=== PATIENT | female | born 1965 | race Caucasian/White ===

== ENCOUNTER 2017-02-11 19:47 | Emergency (ER) | payer SELFPAY ==
--- NOTE | ~2017-02-11 | ER ---
PATIENT'S NAME: JACINTO DELGADO [facility] AGE: 51 Y [address] ROOM: [place] [address] LOCATION: ED ADMIT DATE: 02/11/2017 ER/Outpatient Report DISCHARGE DATE: 02/11/2017 FAMILY PHYSICIAN: Miguel Johnson MD ATTENDING PHYSICIAN: Rashawn Quinonez Time of Arrival: 3 hours. Time of Evaluation: 1953 hours. CHIEF COMPLAINT: Possible dehydration, headache. HISTORY OF PRESENT ILLNESS: The patient states she has not felt well for the last 4 days and has had a headache for the last 24 hours. She said starting Saturday she has been nauseated, has vomited several times, has been lightheaded. She had a history of gastroparesis. She feels as though it is related to that thus causing her problems. She states just prior to arrival she did drink some Gatorade and was able to keep that down with no problems. She reports the headache is her typical headache that she has had in the past. She has also had some left lateral mid-abdominal pain. Denies any change in bowel or bladder pattern. ALLERGIES AND CURRENT MEDICATIONS: On her chart and reviewed by me. PAST MEDICAL HISTORY: Includes gastroparesis and reflux. She has had [place] in the past. She has had several strokes in 2013. Insulin-dependent diabetes. PAST SURGICAL HISTORY: Carpal tunnel surgery, elbow surgery, shoulder surgery, and hysterectomy. SOCIAL HISTORY: She does smoke about a fifth of a pack and has for the past 34 years. Rarely drinks alcohol. Denies use of drugs. REVIEW OF SYSTEMS: All negative other than those mentioned in the HPI. PHYSICAL EXAMINATION: VITAL SIGNS: She weighed 102.2 kg. Blood pressure was 91/55; pulse of 85; respirations 18; temperature of 98, tympanic; and O2 saturation of 97% on room air. [place] Coma Scale was 15. GENERAL: She is awake, alert, and oriented x4. SKIN: [place], warm, and dry. PATIENT'S NAME: JACINTO DELGADO [facility] AGE: 51 Y [address] ROOM: [place] [address] LOCATION: ED ADMIT DATE: 02/11/2017 ER/Outpatient Report DISCHARGE DATE: 02/11/2017 FAMILY PHYSICIAN: Miguel Johnson MD ATTENDING PHYSICIAN: Rashawn Quinonez RESPIRATIONS: Even and nonlabored. Lung sounds are clear throughout. HEART: Regular rate and rhythm. ABDOMEN: Soft, nondistended. Bowel sounds are present. NEUROLOGIC: She walks in with a steady even gait, moves all extremities strongly and equally. EMERGENCY DEPARTMENT COURSE: Saline lock was initiated. Lab work was drawn. CBC is within normal limits. Chem panel is within normal limits. Cardiac enzymes are negative. Free T4 is 1.2 with a TSH of 1.530. Lactate was 1. Procalcitonin was normal. EKG shows a sinus rhythm. Reviewed with Dr. Quinonez. Clean-catch UA was obtained; does show leukocytes, but few bacteria and has many epithelial cells. Fluids were initiated of D5 normal saline at a wide-open rate. She was given Benadryl 50 mg IV and then Compazine 10 mg IV for the headache. She was allowed to rest. She had no emesis while here in the ER. Vital signs remained stable. O2 saturations were above 95% on room air. Blood pressure did improve to 102/59, sinus rhythm the entire time. She states she is feeling better and would like to go home. IMPRESSION: Dehydration, headache. PLAN: Home, rest, fluids. Continue her current medications. Follow up with her primary provider, Dr. Miguel Johnson within the next 24 hours. She verbalized understanding. JEANNE MORENO APRN FOR DO EDIE DUARTE/claudia /[id number] d: 02/12/175 t: 02/12/17 1823, OUTPATIENT REPORT
[~2017-02-11 19:47] MED LIST: **HUMALOG*100 UNIT/M SUB-Q; ACETAMINOPHEN650 M2 PO; ALBUTEROL2.5 MG/31 NEB; ATARAX25 MG PO; BUSPAR10 MG PO; CARAFATE1 GM PO; CARVEDILOL25 MG PO; CATAPRES0.1 MG PO; CATAPRES0.2 M1 PO; CENTRUM COMPLE1 EACH PO; CLINDAMYCIN 1%60 ML TOP; CLOPIDOGREL75 MG PO; COLACE100 MG PO; COMPAZINE10 MG PO; COREG12.5 MG PO; DEPAKOTE ER250 MG PO; DEPAKOTE EXTEN250 MG PO; DIAMOX SEQUE500 MG PO; DIAMOX250 MG PO; DUONEB INH; ELAVIL25 MG PO; ELIMITE TOP; ERYTHROMYCIN250 M1 PO; GLUCOPHAGE500 MG; GOLYTELY PO; IMITREX50 MG PO; INSULIN PUMP1 EACH; JANUVIA50 MG PO; LANTUS100 UNIT/1 SUB-Q; LEVOTHROID (SY50 MCG PO; LISINOPRIL5 MG PO; LOVENOX120 MG/0.8 SUB-Q; MIRTAZAPINE15 M1 PO; MIRTAZAPINE15 MG PO; NEURONTIN300 MG PO; NITROSTAT0.4 MG SL; NORCO 5-325 MG1 TAB PO; NOVOLOG100 UNIT/1 SUB-Q; NOVOLOG100 UNIT/M; NOVOLOG100 UNIT/M SUB-Q; PLAVIX75 MG PO; POTASSIUM CHLO20 ME1 PO; PREFERA OB TAB1 EACH PO; PRENATABS FA T1 EACH PO; PROTONIX40 MG PO; PROVENTIL HFA6.7 GM INH; PROVENTIL OR V6.7 GM INH; REGLAN10 MG PO; REMERON15 M2 PO; SEROQUEL100 MG PO; SEROQUEL200 MG PO; TUMS REGULAR ST1 TAB PO; TYLENOL325 MG PO; XARELTO15 MG PO; XARELTO20 MG PO; ZOCOR40 MG PO; ZOFRAN4 MG PO; ZYRTEC10 MG PO
[2017-02-11 20:17] LABS: BASOPHIL # 0.1 K/uL (0.0-0.2); BASOPHIL % 0.6 %; EOSINOPHIL # 0.1 K/uL (0.0-0.5); EOSINOPHIL % 1.1 %; HEMATOCRIT 42.1 % (33.0-46.0); HEMOGLOBIN 14.3 g/dL (10.0-15.0); IMMATURE GRANULOCYTE % 0.4 %; LYMPHOCYTE # 3.4 K/uL (0.8-4.0); LYMPHOCYTE % 37.6 %; MCH 29.5 pg (27.0-34.0); MCV 86.8 fl (83.0-98.0); MONOCYTE # 0.5 K/uL (0.0-1.0); MONOCYTE % 5.3 %; MPV 10.5 fl (9.4-12.4); NEUTROPHIL # (ANC) 4.9 K/uL (1.8-7.8); NRBC % 0 /100WBC (0-0.00); PLATELET COUNT 174 K/uL (150-450); RBC 4.85 M/uL (3.50-5.50); RDW-CV 13.5 % (11.9-14.6); WBC 8.9 K/uL (4.0-11.0)
[2017-02-11 20:40] LABS: ALBUMIN 3.6 gm/dL (3.5-5.0); ALK PHOS 108 IU/L (33-138); ALT 20 IU/L (12-78); ANION GAP 12.6 (10.0-19.0); AST 16 IU/L (10-40); BLOOD UREA NITROGEN 21 mg/dL (6-24); CALCIUM 8.9 mg/dL (8.5-10.5); CHLORIDE 110 mMol/L (96-110); CO2 25 mMol/L (22-32); CPK 59 IU/L (21-215); CREATININE 1.3 mg/dL (0.5-1.1); POTASSIUM 3.6 mMol/L (3.7-5.1); SODIUM 144 mMol/L (135-145); TOTAL BILIRUBIN 0.4 mg/dL (0.0-1.5); TOTAL PROTEIN 7.1 g/dL (6.0-8.4)
[2017-02-11 21:19] LABS: BLOOD URINE 25 /UL (NEGATIVE); COLOR URINE YELLOW (YELLOW); GLUCOSE URINE NEGATIVE (NEGATIVE); KETONE URINE 5 mg/dL (NEGATIVE); LEUKOCYTES URINE 500 /UL (NEGATIVE); NITRITE URINE NEGATIVE (NEGATIVE); PROTEIN URINE 30 mg/dL (NEGATIVE); SPEC GRAVITY URINE 1.025 (1.003-1.035); TURBIDITY URINE 2+ (CLEAR); UROBILINOGEN URINE 1 mg/dL (NORMAL)
[2017-02-11 21:26] LABS: EPITHELIAL URINE 20-50 #/HPF (NEGATIVE); WBC URINE 50-100 #/HPF (NEGATIVE)
[2017-02-11 21:27] LABS: MUCUS URINE 1+ (NEGATIVE)
[2017-02-11 21:28] LABS: AMORPHOUS URINE 2+ (NEGATIVE); BACTERIA URINE FEW (NEGATIVE)
== END 2017-02-11 22:27 | disposition disaster alternative care site (69) ==
LOC: GMED 19:47
PROVIDERS: Emergency Medicine
DX: E86.0 Dehydration (principal); R51 Headache; F17.210 Nicotine dependence, cigarettes, uncomplicated; I25.2 Old myocardial infarction; K21.9 Gastro-esophageal reflux disease without esophagitis; E11.43 Type 2 diabetes mellitus with diabetic autonomic (poly)neuropathy; K31.84 Gastroparesis; Z86.73 Personal history of transient ischemic attack (TIA), and cerebral infarction without residual deficits; Z90.710 Acquired absence of both cervix and uterus; Z98.890 Other specified postprocedural states; Z79.4 Long term (current) use of insulin; Z88.5 Allergy status to narcotic agent; Z88.1 Allergy status to other antibiotic agents
CPT/HCPCS: J0780; J1200; J7042